=== PATIENT | female | born 1960 | race Caucasian/White ===

== ENCOUNTER 2024-05-30 11:21 | Emergency (ER) | payer SELFPAY ==
--- NOTE | 2024-05-30 11:40 | ERPHSYRPT ---
- History of Present Illness Time Seen by Provider: 05/30/24 11:40 Historian: patient, family Exam Limitations: no limitations Physician History: This is a 63-year-old white female patient of Dr. Davenport who returned home after having a oral surgical procedure performed in [facility] for placement of permanent teeth/dentures. It is a special procedure that is p erformed by particular oral surgeon in that state. Since she has been home she has not drank well or eaten well. She has been vomiting for the last couple days intermittently and this morning felt dizzy. She did not hit her head but felt as though she was going to fall. She denies chest pain. She denies shortness of breath. She has not had any diarrhea symptoms. She took a pain pill at 10 AM prior to arrival. She also smokes tobacco cigarettes daily as well as marijuana as recently as last evening. Her primary concern is dehydration and wanting to control the vomiting. Timing/Duration: day(s) (Several days), worse Quality: aching Abdominal Pain Onset Location: other (Patient has no abdominal pain but has po stoperative pain in the roof of her mouth) Associated Symptoms: nausea, vomiting, weakness Previous symptoms: no prior history, no recent treatment Allergies/Adverse Reactions: No Known Drug Allergies Allergy (Unverified 05/30/24 11:42) Home Medications: Hydrocodone/Acetaminophen [Hydrocodone-Acetamin 5-325 mg] 1 ea QID 05/30/24 [History] Travel Risk - International Travel Have you traveled outside of the country in past 3 weeks: No - Emerging Infectious Disease Are you exhibiting symptoms associated with any current EIDs: No - Review of Systems Constitutional: Weakness Eyes: No Symptoms Ears, Nose, & Throat: Other (Suppurative roof of mouth pain) Respiratory: No Symptoms Cardiac: No Symptoms Abdominal/Gastrointestinal: No Symptoms Genitourinary Symptoms: No Symptoms Skin: No Symptoms Neurological: No Symptoms Psychological: No Symptoms Endocrine: No Symptoms Hematologic/Lymphatic: No Symptoms Immunological/Allergic: No Symptoms All Other Systems: Reviewed and Negative - Past Medical History Pertinent Past Medical History: Yes - Past Surgical History Past Surgical History: Yes - Nursing Vital Signs Nursing Vital Signs: Initial Vital Signs Blood Pressure 97/69 05/30/24 11:38 O2 Sat by Pulse Oximetry 97 05/30/24 11:38 Pain Scale Pain Intensity 1 - Physical Exam General Appearance: mild distress, alert, anxiety Eye Exam: PERRL/EOMI, eyes nml inspection Ears, Nose, Throat Exam: moist mucous membranes, other (Evaluation of the oral cavity shows mild fibrinous exudate in several different areas near the tempo rary surgical sites. No bleeding present.) Neck Exam: normal inspection, non-tender, supple, full range of motion Respiratory Exam: normal breath sounds, lungs clear, airway intact, No chest tenderness, No respiratory distress Cardiovascular Exam: regular rate/rhythm, normal heart sounds, normal peripheral pulses Gastrointestinal/Abdomen Exam: soft, normal bowel sounds, No tenderness Pelvic Exam: not done Rectal Exam: not done Back Exam: normal inspection, normal range of motion, No CVA tenderness Extremity Exam: normal inspection, normal range of motion, pelvis stable Neurologic Exam: alert, oriented x 3, cooperative, 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, normal mood/affect Skin Exam: warm, dry, ecchymosis (Skin overlying the right lower jaw has healing ecchymosis) Lymphatic Exam: No adenopathy SpO2 Interpretation: normal O2 Delivery: Room Air - Course Nursing assessment & vital signs reviewed: Yes Ordered Tests: Active Orders 24 hr Category Date Time Status Clean Catch Urine Specimen STAT Care 05/30/24 12:27 Active IV Insertion STAT Care 05/30/24 11:44 Active Telemetry q4h Care 05/30/24 12:42 Active AMYLASE Stat Lab 05/30/24 11:50 Completed BLOOD CULTURE Stat Lab 05/30/24 11:50 Received CBC W DIFF Stat Lab 05/30/24 11:50 Completed CMP Stat Lab 05/30/24 11:50 Completed CULTURE,URINE Stat Lab 05/30/24 11:48 Received LIPASE Stat Lab 05/30/24 11:50 Completed Lactic Acid Stat Lab 05/30/24 12:25 Completed MAGNESIUM Stat Lab 05/30/24 10:00 Completed UA W/RFX UR CULTURE Stat Lab 05/30/24 11:48 Completed Urine Triage Profile Stat Lab 05/30/24 12:43 Completed Medication Summary Generic Name Dose Route Start Last Admin Trade Name Freq PRN Reason Stop Dose Admin Potassium Chloride 20 meq in 100 mls @ 50 mls/hr 05/30/24 12:42 05/30/24 12:51 Potassium Chloride 20 Meq In Water 100ml IV 05/30/24 14:41 50 mls/hr STAT ONE Administration Sodium Chloride 250 mls @ 125 mls/hr 05/30/24 13:00 05/30/24 13:36 Sodium Chloride 0.9% 250 Ml IV 05/30/24 14:59 125 mls/hr .Q2H MYRTLE Administration Discontinued Medications Generic Name Dose Route Start Last Admin Trade Name Eron PRN Reason Stop Dose Admin Sodium Chloride 1,000 mls @ 999 mls/hr 05/30/24 11:44 05/30/24 13:08 Sodium Chloride 0.9% 1000 Ml IV 05/30/24 12:44 Infused .Q1H1M STA Infusion Sodium Chloride Confirm 05/30/24 11:57 Sodium Chloride 0.9% 1000 Ml Administered 05/30/24 11:58 Dose 1,000 mls @ ud .ROUTE .STK-MED ONE Potassium Chloride Confirm 05/30/24 12:48 Potassium Chloride 20 Meq In Water 100ml Administered 05/30/24 12:49 Dose 100 mls @ ud IV .STK-MED ONE Magnesium Hydroxide 45 ml 05/30/24 14:10 Mag Hydrx/Alum Hyd/Simeth/Lido 45 Ml Bottle PO 05/30/24 14:11 STAT ONE Morphine Sulfate 2 mg 05/30/24 12:43 05/30/24 12:52 Morphine Sulfate 2 Mg/Ml Inj IV 05/30/24 12:44 2 mg STAT ONE Administration Morphine Sulfate Confirm 05/30/24 12:47 Morphine Sulfate 2 Mg/Ml Inj Administered 05/30/24 12:48 Dose 2 mg .ROUTE .STK-MED ONE Ondansetron HCl 4 mg 05/30/24 11:44 05/30/24 12:00 Ondansetron Hcl 4 Mg/2 Ml Vial IV 05/30/24 11:45 4 mg STAT ONE Administration Ondansetron HCl Confirm 05/30/24 11:57 Ondansetron Hcl 4 Mg/2 Ml Vial Administered 05/30/24 11:58 Dose 4 mg .ROUTE .STK-MED ONE Pantoprazole Sodium 40 mg 05/30/24 11:44 05/30/24 12:00 Pantoprazole 40 Mg Vial IV 05/30/24 11:45 40 mg STAT ONE Administration Pantoprazole Sodium Confirm 05/30/24 11:57 Pantoprazole 40 Mg Vial Administered 05/30/24 11:58 Dose 40 mg IV .STK-MED ONE Potassium Chloride 20 meq 05/30/24 12:42 05/30/24 12:51 Potassium Chloride Tab 10 Meq Tab PO 05/30/24 12:43 20 meq STAT ONE Administration Potassium Chloride Confirm 05/30/24 12:47 Potassium Chloride Tab 10 Meq Tab Administered 05/30/24 12:48 Dose 20 meq .ROUTE .STK-MED ONE Lab/Rad Data: Laboratory Result Diagrams 05/30/24 11:50 05/30/24 11:50 Laboratory Results 05/30/24 05/30/24 05/30/24 Range/Units 12:43 12:25 11:50 WBC (3.98-10.04) x10^3/uL RBC (3.93-5.22) x10^6/uL Hgb (11.2-15.7) g/dL Hct (34.1-44.9) % MCV (79.4-94.8) fL MCH (25.6-32.2) pg MCHC (32.2-35.5) g/dL RDW (11.7-14.4) % Plt Count (182-369) x10^3/uL MPV (9.4-12.3) fL Gran % (34.0-71.1) % Immature Gran % (Auto) (0.001-0.429) % Nucleat RBC Rel Count (0.00-0.2) % Eos # (Auto) (0.04-0.36) x10^3/uL Immature Gran # (Auto) (0.001-0.031) x10^3u/L Absolute Lymphs (auto) (1.18-3.74) x10^3/uL Absolute Monos (auto) (0.24-0.86) x10^3/uL Absolute Nucleated RBC (0.00-0.012) x10^3u/L Lymphocytes % (19.3-51.7) % Monocytes % (4.7-12.5) % Eosinophils % (0.7-5.8) % Basophils % (0.1-1.2) % Absolute Granulocytes (1.56-6.13) x10^3/uL Basophils # (0.01-0.08) x10^3/uL Sodium 131 L (135-145) mmol/L Potassium 2.8 L* (3.5-5.1) mmol/L Chloride 93 L (98-107) mmol/L Carbon Dioxide 26 (22-30) mmol/L Anion Gap 15.1 H (5-15) MEQ/L BUN 47 H (7-17) mg/dL Creatinine 1.75 H (0.52-1.04) mg/dL Estimated GFR 32.5 ML/MIN Glucose 184 H (74-106) mg/dL Lactic Acid 1.6 (0.4-2.0) Calcium 10.0 (8.4-10.2) mg/dL Magnesium (1.6-2.3) mg/dL Total Bilirubin 0.60 (0.2-1.3) mg/dL AST 22 (14-36) U/L ALT 16 (0-35) U/L Alkaline Phosphatase 75 (38-126) U/L Serum Total Protein 7.7 (6.3-8.2) g/dL Albumin 4.4 (3.5-5.0) g/dL Amylase 82 (30-110) U/L Lipase 91 (23-300) U/L Urine Color (Yellow) Urine Appearance (Clear) Urine pH (4.6-8.0) Ur Specific [place] (1.005-1.030) Urine Protein (Negative) Urine Glucose (UA) (Negative) mg/dL Urine Ketones (Negative) Urine Blood (Negative) Urine Nitrite (Negative) Urine Bilirubin (Negative) Urine Urobilinogen (0.2) mg/dL Ur Leukocyte Esterase (Negative) U Hyaline Cast (Auto) (0-2) /LPF Urine Microscopic RBC (0-5) /HPF Urine Microscopic WBC (0-5) /HPF Ur Epithelial Cells (None Seen) /HPF Urine Bacteria (None Seen) /HPF Ur Yeast w Hyphae (None Seen) /HPF Urine Culture Reflexed (NO) Urine Opiates Level POSITIVE A (NEGATIVE) Ur Methadone NEGATIVE (NEGATIVE) Urine Barbiturates NEGATIVE (NEGATIVE) Ur Phencyclidine (PCP) NEGATIVE (NEGATIVE) Urine Amphetamine NEGATIVE (NEGATIVE) U Benzodiazepine Level POSITIVE A (NEGATIVE) Urine Cocaine NEGATIVE (NEGATIVE) Urine Marijuana (THC) POSITIVE A (NEGATIVE) 05/30/24 05/30/24 05/30/24 Range/Units 11:50 11:48 10:00 WBC 19.7 H (3.98-10.04) x10^3/uL RBC 5.00 (3.93-5.22) x10^6/uL Hgb 15.0 (11.2-15.7) g/dL Hct 41.3 (34.1-44.9) % MCV 82.6 (79.4-94.8) fL MCH 30.0 (25.6-32.2) pg MCHC 36.3 H (32.2-35.5) g/dL RDW 11.9 (11.7-14.4) % Plt Count 464 H (182-369) x10^3/uL MPV 9.3 L (9.4-12.3) fL Gran % 76.7 H (34.0-71.1) % Immature Gran % (Auto) 0.5 H (0.001-0.429) % Nucleat RBC Rel Count 0.0 (0.00-0.2) % Eos # (Auto) 0.07 (0.04-0.36) x10^3/uL Immature Gran # (Auto) 0.10 H (0.001-0.031) x10^3u/L Absolute Lymphs (auto) 3.13 (1.18-3.74) x10^3/uL Absolute Monos (auto) 1.21 H (0.24-0.86) x10^3/uL Absolute Nucleated RBC 0.00 (0.00-0.012) x10^3u/L Lymphocytes % 15.9 L (19.3-51.7) % Monocytes % 6.1 (4.7-12.5) % Eosinophils % 0.4 L (0.7-5.8) % Basophils % 0.4 (0.1-1.2) % Absolute Granulocytes 15.16 H (1.56-6.13) x10^3/uL Basophils # 0.07 (0.01-0.08) x10^3/uL Sodium (135-145) mmol/L Potassium (3.5-5.1) mmol/L Chloride (98-107) mmol/L Carbon Dioxide (22-30) mmol/L Anion Gap (5-15) MEQ/L BUN (7-17) mg/dL Creatinine (0.52-1.04) mg/dL Estimated GFR ML/MIN Glucose (74-106) mg/dL Lactic Acid (0.4-2.0) Calcium (8.4-10.2) mg/dL Magnesium 2.4 H (1.6-2.3) mg/dL Total Bilirubin (0.2-1.3) mg/dL AST (14-36) U/L ALT (0-35) U/L Alkaline Phosphatase (38-126) U/L Serum Total Protein (6.3-8.2) g/dL Albumin (3.5-5.0) g/dL Amylase (30-110) U/L Lipase (23-300) U/L Urine Color Yellow (Yellow) Urine Appearance Cloudy A (Clear) Urine pH 6.0 (4.6-8.0) Ur Specific [place] 1.015 (1.005-1.030) Urine Protein 30 (Negative) Urine Glucose (UA) Negative (Negative) mg/dL Urine Ketones Negative (Negative) Urine Blood Small A (Negative) Urine Nitrite Negative (Negative) Urine Bilirubin Negative (Negative) Urine Urobilinogen 0.2 (0.2) mg/dL Ur Leukocyte Esterase Large A (Negative) U Hyaline Cast (Auto) 0-2 (0-2) /LPF Urine Microscopic RBC 6-10 A (0-5) /HPF Urine Microscopic WBC 51-100 A (0-5) /HPF Ur Epithelial Cells Many A (None Seen) /HPF Urine Bacteria Few A (None Seen) /HPF Ur Yeast w Hyphae Few A (None Seen) /HPF Urine Culture Reflexed YES (NO) Urine Opiates Level (NEGATIVE) Ur Methadone (NEGATIVE) Urine Barbiturates (NEGATIVE) Ur Phencyclidine (PCP) (NEGATIVE) Urine Amphetamine (NEGATIVE) U Benzodiazepine Level (NEGATIVE) Urine Cocaine (NEGATIVE) Urine Marijuana (THC) (NEGATIVE) - Progress Progress: improved, pain not gone completely Progress Note: 05/30/24 12:55 My medical decision making and the assignment of moderate complexity to this patient's medical issue today is based on review of the patient's past medical history, review of the patient's medication list, review patient drug allergy list, history present illness and physical findings on examination. The workup in this patient includes placement of intravenous line, infusion of normal saline crystalloid (more if documented by renal function and urinalysis), infusion of Zofran, infusion of Protonix, CBC, CMP, amylase, lipase, magnesium level, lactic acid level, urinalysis and urine drug screen. Differential diagnosis includes but is not limited to electrolyte abnormalities, urinary tract infection, dehydration, pancreatitis 05/30/24 14:27 I interpreted the patient's laboratory data results. Based on the laboratory data results, the patient has a significant urinary tract infection. We will provide her with a gram of Rocephin and then a prescription for cefdinir for 7 days. Counseled pt/family regarding: lab results, diagnosis, need for follow-up Medical Desision Making - Independent Historian Additional History obtained from: Spouse - Diagnostic Testing Diagnostic test were ordered, analyzed, and reviewed by me: Yes - Risk of complications The pt has a mod risk of morbidity or mortality based on: Need for prescription drug management - Departure Departure Disposition: Home Clinical Impression: Urinary tract infection, Vomiting Condition: Stable Critical Care Time: No Referrals: RADHA DAVENPORT DO [Primary Care Provider] - Follow up/PCP as directed Additional Instructions: Drink plenty of clear liquids before advancing your diet. Take your antibiotics and other medications as prescribed. Call your prescribing provider today, 05/30/2024, to make arranges for follow-up appointment for further evaluation and management. Prescriptions: Cefdinir 300 mg PO BID #[id number] cap
[2024-05-30 11:47] VITALS: TEMP 97.2
[2024-05-30] MEDS ORDERED: Zofran 4 MG/2 ML VIAL ONE (11:57)
[2024-05-30] MEDS ORDERED: Sodium Chloride 0.9% 1000 ML 1,000 ML ONE (11:57)
[2024-05-30] MEDS ORDERED: PROTONIX 40 MG IV IV ONE (11:57)
[2024-05-30] MEDS: Zofran 4 MG/2 ML VIAL IV ONE (12:00)
[2024-05-30] MEDS: Sodium Chloride 0.9% 1000 ML 1,000 ML IV STA (12:00)
[2024-05-30] MEDS: PROTONIX 40 MG IV IV ONE (12:00)
[2024-05-30 12:14] LABS: Absolute Neutrophil Ct (ANC) 15.16 x10^3/uL (1.56-6.13); BASOPHIL % 0.4 % (0.1-1.2); Basophil (Absolute #) 0.07 x10^3/uL (0.01-0.08); Eosinophil % 0.4 % (0.7-5.8); Eosinophil (Absolute #) 0.07 x10^3/uL (0.04-0.36); Hematocrit 41.3 % (34.1-44.9); IMMATURE GRAN % 0.5 % (0.001-0.429); Lymphocyte (Absolute #) 3.13 x10^3/uL (1.18-3.74); Lymphocytes % 15.9 % (19.3-51.7); Mean Cell Volume 82.6 fL (79.4-94.8); Mean Corpuscular Hgb Concent. 36.3 g/dL (32.2-35.5); Mean Platelet Volume 9.3 fL (9.4-12.3); Monocyte (Absolute #) 1.21 x10^3/uL (0.24-0.86); Monocytes % 6.1 % (4.7-12.5); Neutrophil % 76.7 % (34.0-71.1); Platelet Count 464 x10^3/uL (182-369); Red Cell Distribution Width 11.9 % (11.7-14.4); White Blood Count 19.7 x10^3/uL (3.98-10.04)
[2024-05-30 12:32] LABS: ALBUMIN 4.4 g/dL (3.5-5.0); ANION GAP 15.1 MEQ/L (5-15); BILIRUBIN,TOTAL 0.6 mg/dL (0.2-1.3); Creatinine 1 1.75 mg/dL (0.52-1.04); EST GLOMERULAR FILTRATION RATE 32.5 ML/MIN; Total Protein 7.7 g/dL (6.3-8.2)
[2024-05-30 12:41] LABS: Potassium 2.8 mmol/L (3.5-5.1)
[2024-05-30] MEDS ORDERED: Klor Con ONE (12:47)
[2024-05-30] MEDS ORDERED: MORPHINE SULFATE 2 MG INJ ONE (12:47)
[2024-05-30] MEDS ORDERED: POTASSIUM CHLORIDE 20 mEq IN WATER 100ML 100 ML IV ONE (12:48)
[2024-05-30] MEDS ORDERED: Sodium Chloride 0.9% 250 ML 250 ML IV ONE (12:50)
[2024-05-30] MEDS: POTASSIUM CHLORIDE 20 mEq IN WATER 100ML 20 MEQ/100 ML BAG IV ONE (12:51)
[2024-05-30] MEDS: Klor Con PO ONE (12:51)
[2024-05-30] MEDS: MORPHINE SULFATE 2 MG INJ IV ONE (12:52)
[2024-05-30 13:02] VITALS: PULSE 87; RESP 15; O2SAT 98
[2024-05-30] MEDS: Sodium Chloride 0.9% 250 ML 250 ML IV SCH (13:36)
[2024-05-30 13:41] LABS: Amphetamine,Urine NEGATIVE (NEGATIVE); Barbiturate,Urine NEGATIVE (NEGATIVE); Benzodiazepine,Urine POSITIVE (NEGATIVE); Cocaine,Urine NEGATIVE (NEGATIVE); Methadone,Urine NEGATIVE (NEGATIVE); Opiate,Urine POSITIVE (NEGATIVE); PCP,Urine NEGATIVE (NEGATIVE); THC,Urine POSITIVE (NEGATIVE)
[2024-05-30 14:19] LABS: Appearance Cloudy (Clear); Bacteria Few /HPF (None Seen); Bilirubin Negative (Negative); Blood Small (Negative); Epithelial Cells Many /HPF (None Seen); Glucose, Urine Negative (Negative); Hyaline Casts 0-2 /LPF (0-2); Hyphae Yeast Few /HPF (None Seen); Ketones Negative (Negative); Leukocyte Esterase Large (Negative); Nitrite Negative (Negative); Protein,Urine Dip 30 (Negative); Specific Gravity 1.015 (1.005-1.030); Urobilinogen 0.2 mg/dL (0.2); WBC 51-100 /HPF (0-5)
[2024-05-30] MEDS: GI COCKTAIL 45 ML (Maalox/Lidocaine) PO ONE (14:30)
[2024-05-30] MEDS ORDERED: ROCEPHIN 1 GM / 100 ML NaCl 1 GM/100 ML IVPB IV ONE (14:37)
[2024-05-30] MEDS: ROCEPHIN 1 GM / 100 ML NaCl 1 GM/100 ML IVPB IV ONE (14:39)
[2024-05-30 15:08] VITALS: BP 125/69
== END 2024-05-30 15:13 | disposition home or self-care (01) ==
LOC: ED 11:21
DX: N39.0 Urinary tract infection, site not specified (principal); R11.2 Nausea with vomiting, unspecified; E87.6 Hypokalemia; R42 Dizziness and giddiness; Z79.891 Long term (current) use of opiate analgesic; Z79.899 Other long term (current) drug therapy
CPT/HCPCS: 36000; 36415; 80053; 80307; 81001; 82150; 83605; 83690; 83735; 85025; 87040; 87077; 87086; 87186; 96360; 96361; 96365; 96374; 96375; 99284; J0696; J2270; J2405; J3480; A9270-GY